=== PATIENT | female | born 1960 | race Two or more races ===

== ENCOUNTER 2023-03-07 12:39 | Emergency (ER) | payer SELFPAY ==
[2023-03-07 12:54] VITALS: RESP 18; TEMP 97.8; BMI 25.0
[2023-03-07] MEDS ORDERED: ALBUTEROL SO4 2.5/IPRATROPIUM 0.5 INH SOL 3 ML VIAL.NEB. NEB ONE ×2 (14:28→14:33)
[2023-03-07 19:12] VITALS: BP 132/85; PULSE 60
== END 2023-03-07 19:18 | disposition home or self-care (01) ==
LOC: JERFT 12:39
PROC: 3E0F7GC Introduction of Other Therapeutic Substance into Respiratory Tract, Via Natural or Artificial Opening (ICD-10-PCS; principal; 2023-03-07)
DX: R05.9 Cough, unspecified (principal); R06.2 Wheezing; Z20.822 Contact with and (suspected) exposure to COVID-19
CPT/HCPCS: 0241U-QW; 71046-TC-FY; 99284-25